=== PATIENT | male | born 1975 | race Caucasian/White ===

== ENCOUNTER 2022-12-22 03:16 | Emergency (ER) | payer SELFPAY ==
[2022-12-22] MEDS ORDERED: Ibuprofen 800 MG TAB ONE (03:49)
[2022-12-22] MEDS ORDERED: Acetaminophen 500 MG TAB ONE (03:49)
== END 2022-12-22 03:56 | disposition home or self-care (01) ==
LOC: BURERS 03:16
DX: R51.9 Headache, unspecified (principal)
CPT/HCPCS: 99283